=== PATIENT | female | born 1950 | race Caucasian/White ===

== ENCOUNTER 2021-10-16 08:10 | Inpatient (IN) ==
--- NOTE | 2021-10-06 17:30 | XRay Report ---
CLINICAL INFORMATION: Preop COMPARISON: None. TECHNIQUE: PA and Lateral views FINDINGS: Right subclavian Port-A-Cath tip in the SVC right atrial junction. The heart size, mediastinum and pulmonary vessels are unremarkable. The lungs are clear. There are no effusions. IMPRESSION: No acute cardiopulmonary disease. Interpreted and Authenticated by: Pastor Hong 10/06/21
--- NOTE | 2021-10-06 18:17 | EKG ---
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
[2021-10-06 19:03] LABS: Basophils # (Auto) 0.06 K/mcL (0.00-0.30); Basophils % (Auto) 0.7 % (0.0-2.0); Eosinophils # (Auto) 0.19 K/mcL (0.00-0.70); Eosinophils % (Auto) 2.3 % (0.0-7.0); Hematocrit 35.4 % (34.1-44.9); Hemoglobin 11.7 g/dL (11.2-15.7); Lymphocytes # (Auto) 1.92 K/mcL (1.50-4.80); Lymphocytes % (Auto) 23.6 % (15.5-49.0); Mean Cell Volume 91.2 fL (80.0-100.0); Mean Corpuscular HGB Conc 33.1 g/dL (31.0-36.0); Monocytes # (Auto) 0.54 K/mcL (0.10-0.90); Monocytes % (Auto) 6.6 % (1.0-12.0); Neutrophils % (Auto) 66.8 % (38.0-78.0); Platelet Count 334 K/mcL (140-440); RBC 3.88 M/mcL (3.59-5.38); Red Cell Distribution Width 13.3 % (11.5-14.5); WBC 8.2 K/mcL (4.5-11.0)
[2021-10-06 19:08] LABS: ALT/SGPT 21 U/L (<40); AST/SGOT 27 U/L (<32); Albumin 3.6 gm/dL (3.2-5.2); Alkaline Phosphatase 77 U/L (39-117); Bilirubin,Total 0.3 mg/dL (0.1-1.0); Blood Urea Nitrogen 16 mg/dL (8-23); Calcium 8.5 mg/dL (8.6-10.4); Carbon Dioxide 22 mmol/L (22-30); Chloride 102 mmol/L (96-108); Globulin 3.5 gm/dL (2.2-3.7); Glomerular Filtration Rate 88; Glucose 91 mg/dL (70-105)
[2021-10-06 19:13] LABS: INR 1.1 (0.9-1.1); Prothrombin Time 14.4 sec (11.9-14.5)
[~2021-10-16 08:10] MED LIST: CEFEPIME 2 GM VIAL IV SCH; metroNIDAZOLE 500 MG/100 ML BAG IV SCH
[2021-10-16] MEDS ORDERED: MAGNESIUM SULFATE 2 GM/50 ML BAG IV ONE (09:49)
[2021-10-16] MEDS ORDERED: MIDAZOLAM 2 MG/2 ML VIAL ONE (09:49)
[2021-10-16] MEDS ORDERED: ONDANSETRON 4 MG/2 ML VIAL ONE (09:49)
[2021-10-16] MEDS ORDERED: DEXAMETHASONE 10 MG/ML VIAL ONE (09:49)
[2021-10-16] MEDS ORDERED: PROPOFOL 200 MG/20 ML VIAL IV ONE (09:49)
[2021-10-16] MEDS ORDERED: ROCURONIUM 10 MG/ML ML IV ONE (09:49)
[2021-10-16] MEDS ORDERED: ePHEDrine 50 MG/5 ML SYRINGE (ANEST) IV ONE (09:49)
[2021-10-16] MEDS ORDERED: LIDOCAINE HCL/PF 100 MG/5 ML SYRINGE IV ONE (09:49)
[2021-10-16] MEDS ORDERED: SUGAMMADEX SODIUM 200 MG/2 ML VIAL IV ONE (09:49)
[2021-10-16] MEDS ORDERED: PHENYLephrine 1 MG/10 ML SYRINGE (ANEST) ONE (09:49)
[2021-10-16] MEDS ORDERED: KETAMINE 50 MG/ML Syringe (ANEST) IV ONE (09:49)
[2021-10-16] MEDS ORDERED: HYDROmorphone 1 MG/ML SYRINGE ONE (09:49)
[2021-10-16] MEDS ORDERED: GENTAMICIN SULFATE 800 MG/20 ML VIAL IR ONE (10:39)
[2021-10-16] MEDS ORDERED: VANCOMYCIN 1 GM VIAL TOPICAL SCH (10:45)
[2021-10-16] MEDS ORDERED: ONDANSETRON 4 MG/2 ML VIAL IV PRN ×2 (13:04→13:06)
[2021-10-16] MEDS ORDERED: MEPERIDINE 25 MG/ML VIAL IV PRN (13:06)
[2021-10-16] MEDS ORDERED: IPRATROPIUM/ALBUTEROL 3 ML AMPUL.NEB NEB PRN (13:06)
[2021-10-16] MEDS ORDERED: LACTATED RINGERS 250 ML IV PRN (13:06)
[2021-10-16] MEDS ORDERED: FLUMAZENIL 0.1 MG/ML ML IV PRN (13:06)
[2021-10-16] MEDS ORDERED: NALOXONE HCL 0.4 MG/ML VIAL IV PRN (13:06)
[2021-10-16] MEDS ORDERED: METOCLOPRAMIDE 10 MG/2 ML VIAL IV PRN (13:06)
[2021-10-16] MEDS: fentaNYL 100 MCG/2 ML VIAL IV PRN ×8 (13:17→13:47)
[2021-10-16] MEDS ORDERED: METHOCARBAMOL 1,000 MG/10 ML VIAL IV ONE (13:23)
[2021-10-16] MEDS: HYDROmorphone 0.5 MG/0.5 ML SYRINGE IV PRN ×2 (13:55→14:32)
[2021-10-16] MEDS: LACTATED RINGERS 1,000 ML IV SCH ×2 (14:15→23:26)
[2021-10-16] MEDS: ACETAMINOPHEN 1,000 MG/100 ML BAG IV SCH ×2 (14:16→19:56)
[2021-10-16] MEDS: HYDROmorphone 1 MG/ML SYRINGE IV PRN ×3 (16:23→23:26)
[2021-10-16] MEDS: 0.9 % SODIUM CHLORIDE 10 ML SYRINGE IV SCH ×2 (16:23→21:09)
[2021-10-16] MEDS: PIPERACILLIN SODIUM/TAZOBACTAM 3.375 GM in DEXTROSE 5% IN WATER 50 ML IV SCH ×2 (17:00→21:04)
[2021-10-16] MEDS: METOCLOPRAMIDE 10 MG/2 ML VIAL IV SCH ×2 (17:38→23:26)
[2021-10-16] MEDS: oxyCODONE HCL 5 MG TABLET PO PRN (17:58)
[2021-10-16] MEDS ORDERED: DOCUSATE SODIUM 100 MG CAPSULE PO SCH (21:00)
[2021-10-16] MEDS: DOCUSATE SODIUM 100 MG CAPSULE PO SCH (21:44)
[2021-10-16] MEDS: CELECOXIB 100 MG CAPSULE PO SCH (21:44)
[2021-10-16] MEDS: SENNOSIDES 1 TABLET PO SCH (21:44)
[2021-10-16] MEDS: METHOCARBAMOL 500 MG TABLET PO PRN (21:44)
[2021-10-16] MEDS: CARBIDOPA/LEVODOPA 25/100 TABLET PO SCH (21:44)
[2021-10-17] MEDS: PIPERACILLIN SODIUM/TAZOBACTAM 3.375 GM in DEXTROSE 5% IN WATER 50 ML IV SCH ×5 (00:58→23:26)
[2021-10-17] MEDS: 0.9 % SODIUM CHLORIDE 10 ML SYRINGE IV SCH ×6 (00:59→23:26)
[2021-10-17] MEDS: HYDROmorphone 1 MG/ML SYRINGE IV PRN ×5 (01:20→21:17)
[2021-10-17] MEDS: LACTATED RINGERS 1,000 ML IV SCH ×3 (01:21→22:05)
[2021-10-17] MEDS: ACETAMINOPHEN 1,000 MG/100 ML BAG IV SCH ×2 (01:26→08:09)
[2021-10-17] MEDS: METOCLOPRAMIDE 10 MG/2 ML VIAL IV SCH ×4 (05:54→23:26)
[2021-10-17 06:52] LABS: Basophils # (Auto) 0.06 K/mcL (0.00-0.30); Basophils % (Auto) 0.5 % (0.0-2.0); Eosinophils # (Auto) 0.06 K/mcL (0.00-0.70); Eosinophils % (Auto) 0.5 % (0.0-7.0); Hematocrit 34.4 % (34.1-44.9); Hemoglobin 10.9 g/dL (11.2-15.7); Lymphocytes # (Auto) 1.47 K/mcL (1.50-4.80); Lymphocytes % (Auto) 12.2 % (15.5-49.0); Mean Cell Volume 94.2 fL (80.0-100.0); Mean Corpuscular HGB Conc 31.7 g/dL (31.0-36.0); Mean Platelet Volume 8.9 fL (7.4-10.4); Monocytes # (Auto) 0.92 K/mcL (0.10-0.90); Monocytes % (Auto) 7.6 % (1.0-12.0); Neutrophils % (Auto) 79.2 % (38.0-78.0); Platelet Count 268 K/mcL (140-440); RBC 3.65 M/mcL (3.59-5.38)
[2021-10-17 07:22] LABS: ALT/SGPT < 5 U/L (<40); AST/SGOT 35 U/L (<32); Alkaline Phosphatase 73 U/L (39-117); Bilirubin,Direct < 0.2 mg/dL (0-0.3); Bilirubin,Total 0.4 mg/dL (0.1-1.0); Blood Urea Nitrogen 11 mg/dL (8-23); Calcium 7.7 mg/dL (8.6-10.4); Carbon Dioxide 23 mmol/L (22-30); Chloride 101 mmol/L (96-108); Glomerular Filtration Rate 65; Glucose 99 mg/dL (70-105); Lactate Dehydrogenase 208 U/L (135-225); Phosphorous 3.3 mg/dL (2.5-4.5); Triglycerides 75 mg/dL (<150)
[2021-10-17] MEDS: PANTOPRAZOLE 40 MG TABLET PO SCH (08:16)
[2021-10-17] MEDS: amLODIPine 10 MG TABLET PO SCH (08:25)
[2021-10-17] MEDS: DOCUSATE SODIUM 100 MG CAPSULE PO SCH ×2 (08:25→21:18)
[2021-10-17] MEDS: CITALOPRAM 20 MG TABLET PO SCH (08:25)
[2021-10-17] MEDS: CYANOCOBALAMIN (VITAMIN B-12) 500 MCG TABLET PO SCH (08:25)
[2021-10-17] MEDS: CELECOXIB 100 MG CAPSULE PO SCH ×2 (09:44→21:18)
--- NOTE | 2021-10-17 11:15 | General Surgery Progress Note ---
SUBJECTIVE Subjective Patient information: Note initiated : 10/17/21 at 11:09 am Service Date, if different from initiated Date: [] Patient: Angelia Gilliam 71 y/o F admitted on 10/16/21 for Laparoscopic Parastomal Hernia Repair. Chief Complaint: [] Principal diagnosis: Parastomal hernia Interval history: Patient is doing well. Her pain is well controlled. She denies nausea. She has not had movement through her stoma so far. Her incision looks good with small amount of drainage. Constitutional Vitals: Vital Signs Temp Pulse Resp BP Pulse Ox 97.0 F 73 18 130/76 91 10/17/21 08:17 10/17/21 08:17 10/17/21 08:20 10/17/21 08:17 10/17/21 08:20 Period Temp Pulse Resp BP Sys/Mcnamara Pulse Ox Last 24 Hr 96.9 F-98.1 F 62-91 12-88 106-160/68-110 85-100 Intake and Output 10/16/21 10/17/21 10/17/21 21:59 05:59 13:59 Intake Total 300 1250 230 Output Total 115 240 Balance 185 1010 230 Weight 168 lb 3 oz Intake & Output: Intake & Output 10/16/21 10/17/21 10/17/21 21:59 05:59 13:59 Intake Total 300 1250 230 Output Total 115 240 Balance 185 1010 230 Weight 168 lb 3 oz Intake: IV 300 1150 150 Lactated Ringers 1,000 ml @ 100 1000 mls/hr IV .Q10H KANDI Rx#: [id number] Zosyn 3.375 gm In Dextrose 5% 100 50 50 in Water 50 ml @ 100 mls/hr IV Q6H KANDI Rx#:[id number] Oral 100 80 Output: Drainage 115 40 Left Abdomen 115 40 Void Amount 200 Eye Eye exam: Present EOMI Pupils: Present normal accommodation and PERRL ENT ENT exam: Present mucous membranes moist and normal exam Neck Neck exam: Present full ROM and normal inspection; Absent tenderness Respiratory Respiratory exam: Present normal respiratory exam and CTAB Cardiovascular Cardiovascular exam: Present normal rate and rhythm, RRR, +S1 and +S2; Absent JVD GI/Abdominal GI/Abdominal exam: Present normal bowel sounds and distended (Mild distention) Extremities Exam Extremities exam: Present full ROM and normal inspection; Absent pedal edema Neurological Exam Neurological exam: Present alert, normal gait and oriented X3; Absent motor sensory deficit Psychiatric Psychiatric exam: Present normal affect and normal mood A/P Assessment and plan (1) Incisional hernia of anterior abdominal wall without obstruction or gangrene: Status: Acute (2) Parastomal hernia without obstruction or gangrene: Status: Acute (3) Colostomy status: Status: Acute Plan Patient is doing well without complaints. Time Spent With Patient Time: Total time spent is greater than 50% in coordination of care (as documented) at patient's floor/unit and/or counseling patient:
[2021-10-17] MEDS: SENNOSIDES 1 TABLET PO SCH (21:18)
[2021-10-17] MEDS: CARBIDOPA/LEVODOPA 25/100 TABLET PO SCH (21:18)
[2021-10-17] MEDS: METHOCARBAMOL 500 MG TABLET PO PRN (21:18)
[2021-10-18] MEDS: HYDROmorphone 1 MG/ML SYRINGE IV PRN ×6 (01:18→19:19)
[2021-10-18] MEDS: LACTATED RINGERS 1,000 ML IV SCH ×4 (05:23→19:19)
[2021-10-18] MEDS: PIPERACILLIN SODIUM/TAZOBACTAM 3.375 GM in DEXTROSE 5% IN WATER 50 ML IV SCH ×4 (06:00→23:31)
[2021-10-18] MEDS: METOCLOPRAMIDE 10 MG/2 ML VIAL IV SCH ×4 (06:01→23:31)
[2021-10-18] MEDS: 0.9 % SODIUM CHLORIDE 10 ML SYRINGE IV SCH ×3 (06:01→20:31)
[2021-10-18] MEDS: oxyCODONE HCL 5 MG TABLET PO PRN ×2 (07:37→23:25)
[2021-10-18] MEDS: PANTOPRAZOLE 40 MG TABLET PO SCH (07:37)
[2021-10-18] MEDS: METHOCARBAMOL 500 MG TABLET PO PRN (07:40)
[2021-10-18] MEDS: CELECOXIB 100 MG CAPSULE PO SCH ×2 (08:57→20:31)
[2021-10-18] MEDS: DOCUSATE SODIUM 100 MG CAPSULE PO SCH ×2 (09:00→20:30)
[2021-10-18] MEDS: amLODIPine 10 MG TABLET PO SCH (09:00)
[2021-10-18] MEDS: CITALOPRAM 20 MG TABLET PO SCH (09:00)
[2021-10-18] MEDS: CYANOCOBALAMIN (VITAMIN B-12) 500 MCG TABLET PO SCH (09:00)
--- NOTE | 2021-10-18 11:19 | General Surgery Progress Note ---
SUBJECTIVE Subjective Patient information: Note initiated : 10/18/21 at 11:10 am Service Date, if different from initiated Date: [] Patient: Angelia Gilliam 71 y/o F admitted on 10/16/21 for Laparoscopic Parastomal Hernia Repair. Chief Complaint: [] Principal diagnosis: Parastomal hernia Interval history: Patient is stable and improved. She still not had any flatus through her stoma. She however does not have a distended abdomen. No complaint of nausea and her abdominal pain is well controlled. She does complain of headache which is new in onset. Constitutional Vitals: Vital Signs Temp Pulse Resp BP Pulse Ox 98.3 F 101 H 18 161/92 92 10/18/21 08:45 10/18/21 08:45 10/18/21 08:45 10/18/21 08:45 10/18/21 08:45 Period Temp Pulse Resp BP Sys/Mcnamara Pulse Ox Last 24 Hr 97.1 F-98.9 F 67-101 16-18 122-173/52-92 89-95 Intake and Output 10/17/21 10/18/21 10/18/21 21:59 05:59 13:59 Intake Total 7984 029 4227 Output Total 7724 309 2144 Balance -43 -705 -325 Weight 164 lb 4.8 oz Intake & Output: Intake & Output 10/17/21 10/18/21 10/18/21 21:59 05:59 13:59 Intake Total 0503 975 7788 Output Total 2303 082 3139 Balance -43 -705 -325 Weight 164 lb 4.8 oz Intake: IV 1050 50 1050 Lactated Ringers 1,000 ml @ 100 1000 1000 mls/hr IV .Q10H KANDI Rx#: [id number] Zosyn 3.375 gm In Dextrose 5% 50 50 50 in Water 50 ml @ 100 mls/hr IV Q6H KANDI Rx#:[id number] Oral 15 150 100 Output: Drainage 8 5 Left Abdomen 8 5 Void Amount 4140 840 5812 Other: Urine Appearance Clear Clear Urine Color Bright Yellow Bright Yellow Urine Odor Normal Normal Eye Eye exam: Present EOMI Pupils: Present PERRL ENT ENT exam: Present mucous membranes moist and normal oropharynx Neck Neck exam: Present full ROM and normal inspection; Absent lymphadenopathy Respiratory Respiratory exam: Present normal respiratory exam and CTAB Cardiovascular Cardiovascular exam: Present normal rate and rhythm, RRR, +S1 and +S2; Absent JVD GI/Abdominal GI/Abdominal exam: Present diminished bowel sounds (Hypoactive bowel sounds), distended (Mild distention) and tenderness (Tenderness around operative site; stoma is pink and nonswollen) Extremities Exam Extremities exam: Present normal capillary refill and neurovascular intact Neurological Exam Neurological exam: Present CN II-XII intact and oriented X3; Absent motor sensory deficit Psychiatric Psychiatric exam: Present normal affect and normal mood Skin Skin exam: Present intact and normal color A/P Assessment and plan (1) Incisional hernia of anterior abdominal wall without obstruction or gangrene: Status: Acute (2) Parastomal hernia without obstruction or gangrene: Status: Acute (3) Colostomy status: Status: Acute Plan May have apple juice 2 view abdominal x-ray CBC and IP Fioricet for headache Time Spent With Patient Time: Total time spent is greater than 50% in coordination of care (as documented) at patient's floor/unit and/or counseling patient:
[2021-10-18] MEDS: BUTALB/ACETAMINOPHEN/CAFFEINE 1 TABLET PO PRN ×3 (11:52→23:26)
--- NOTE | 2021-10-18 12:05 | XRay Report ---
INDICATION: FOR F/U OF ILEUS: Please perform today TECHNIQUE: Supine and upright abdomen. COMPARISON: Previous CT scan dated 07/27/2021 FINDINGS:There are skin josue and a vertical midline abdominal and pelvic incision. There is a surgical drain in the left lower quadrant. Surgical clips in the right upper abdominal quadrant. There is gas within the colon. There is no pneumatosis. No evidence for colonic obstruction. There is small bowel gas without significant dilatation. No air-fluid levels. There is no pneumoperitoneum. No biliary or portal venous gas. IMPRESSION: Unremarkable postoperative bowel gas pattern Interpreted and Authenticated by: Pastor Starkey 10/18/21
[2021-10-18] MEDS: CARBIDOPA/LEVODOPA 25/100 TABLET PO SCH (20:31)
[2021-10-18] MEDS: SENNOSIDES 1 TABLET PO SCH (20:31)
[2021-10-19] MEDS: HYDROmorphone 1 MG/ML SYRINGE IV PRN ×2 (03:00→05:31)
[2021-10-19] MEDS: BUTALB/ACETAMINOPHEN/CAFFEINE 1 TABLET PO PRN ×2 (04:19→11:25)
[2021-10-19] MEDS: LACTATED RINGERS 1,000 ML IV SCH (04:53)
[2021-10-19] MEDS: 0.9 % SODIUM CHLORIDE 10 ML SYRINGE IV SCH ×5 (05:49→23:58)
[2021-10-19] MEDS: PIPERACILLIN SODIUM/TAZOBACTAM 3.375 GM in DEXTROSE 5% IN WATER 50 ML IV SCH ×4 (05:50→23:32)
[2021-10-19] MEDS: METOCLOPRAMIDE 10 MG/2 ML VIAL IV SCH ×4 (06:07→23:58)
[2021-10-19 06:21] LABS: Basophils # (Auto) 0.05 K/mcL (0.00-0.30); Basophils % (Auto) 0.6 % (0.0-2.0); Eosinophils # (Auto) 0.73 K/mcL (0.00-0.70); Eosinophils % (Auto) 8.4 % (0.0-7.0); Hematocrit 35.7 % (34.1-44.9); Hemoglobin 11.4 g/dL (11.2-15.7); Lymphocytes % (Auto) 12.6 % (15.5-49.0); Mean Cell Volume 94.7 fL (80.0-100.0); Mean Corpuscular HGB Conc 31.9 g/dL (31.0-36.0); Monocytes # (Auto) 0.68 K/mcL (0.10-0.90); Monocytes % (Auto) 7.8 % (1.0-12.0); Neutrophils % (Auto) 70.6 % (38.0-78.0); Platelet Count 272 K/mcL (140-440); RBC 3.77 M/mcL (3.59-5.38); WBC 8.7 K/mcL (4.5-11.0)
[2021-10-19 06:55] LABS: ALT/SGPT < 5 U/L (<40); AST/SGOT 22 U/L (<32); Albumin 2.9 gm/dL (3.2-5.2); Albumin/Globulin Ratio 0.8 (1.0-2.3); Alkaline Phosphatase 95 U/L (39-117); Bilirubin,Direct < 0.2 mg/dL (0-0.3); Bilirubin,Total 0.4 mg/dL (0.1-1.0); Blood Urea Nitrogen 7 mg/dL (8-23); Calcium 8.4 mg/dL (8.6-10.4); Carbon Dioxide 31 mmol/L (22-30); Chloride 100 mmol/L (96-108); Globulin 3.6 gm/dL (2.2-3.7); Glomerular Filtration Rate 88; Glucose 99 mg/dL (70-105); Lactate Dehydrogenase 173 U/L (135-225); Phosphorous 2.4 mg/dL (2.5-4.5); Triglycerides 83 mg/dL (<150); Uric Acid 3.1 mg/dL (2.5-8.0)
[2021-10-19] MEDS: PANTOPRAZOLE 40 MG TABLET PO SCH (07:26)
[2021-10-19] MEDS: amLODIPine 10 MG TABLET PO SCH (08:31)
[2021-10-19] MEDS: DOCUSATE SODIUM 100 MG CAPSULE PO SCH ×2 (08:31→20:14)
[2021-10-19] MEDS: CITALOPRAM 20 MG TABLET PO SCH (08:32)
[2021-10-19] MEDS: CYANOCOBALAMIN (VITAMIN B-12) 500 MCG TABLET PO SCH (08:32)
[2021-10-19] MEDS: CELECOXIB 100 MG CAPSULE PO SCH (08:32)
[2021-10-19] MEDS: oxyCODONE HCL 5 MG TABLET PO PRN ×2 (14:27→20:22)
[2021-10-19] MEDS: METHOCARBAMOL 500 MG TABLET PO PRN ×2 (14:27→20:14)
--- NOTE | 2021-10-19 15:38 | General Surgery Progress Note ---
SUBJECTIVE Subjective Patient information: Note initiated : 10/19/21 at 3:32 pm Service Date, if different from initiated Date: [] Patient: Angelia Gilliam 71 y/o F admitted on 10/16/21 for Laparoscopic Parastomal Hernia Repair. Chief Complaint: [] Principal diagnosis: Parastomal hernia Interval history: Patient is doing well except for severe headache. She complains of muscle contraction headache that starts in her posterior neck and spreads across the top of her scalp to the front. She describes it as a constant tightness and ache. She states that she generally does not have headaches. She has had multiple bowel movements and her stoma is functioning adequately. There is minimal output from her drain. Constitutional Vitals: Vital Signs Temp Pulse Resp BP Pulse Ox 98.5 F 96 H 22 169/89 99 10/19/21 12:00 10/19/21 12:00 10/19/21 12:00 10/19/21 07:46 10/19/21 12:00 Period Temp Pulse Resp BP Sys/Mcnamara Pulse Ox Last 24 Hr 97.2 F-98.5 F 75-96 16-22 117-169/64-89 91-99 Intake and Output 10/19/21 10/19/21 10/19/21 05:59 13:59 21:59 Intake Total 1427 50 50 Output Total 780 500 Balance 647 -450 50 Intake & Output: Intake & Output 10/19/21 10/19/21 10/19/21 05:59 13:59 21:59 Intake Total 1427 50 50 Output Total 780 500 Balance 647 -450 50 Intake: IV 1007 50 50 Lactated Ringers 1,000 ml @ 100 957 mls/hr IV .Q10H KANDI Rx#: [id number] Zosyn 3.375 gm In Dextrose 5% 50 50 50 in Water 50 ml @ 100 mls/hr IV Q6H KANDI Rx#:[id number] Oral 420 Output: Drainage 5 Left Abdomen 5 Void Amount 775 450 Stool 50 Other: Urine Appearance Clear Urine Color Pale Urine Odor Normal Stool Size Small Stool Color Brown Yellow Green Head Head exam: Present atraumatic, normal inspection and normocephalic Additional comments: Mild tenderness of the posterior cervical muscles but without spasm; no scalp tenderness noted Eye Eye exam: Present EOMI and PERRL ENT ENT exam: Present mucous membranes moist and normal oropharynx Neck Neck exam: Present full ROM and normal inspection; Absent lymphadenopathy Respiratory Respiratory exam: Present CTAB Cardiovascular Cardiovascular exam: Present normal rate and rhythm, RRR, +S1 and +S2; Absent gallop or JVD GI/Abdominal GI/Abdominal exam: Present normal bowel sounds and tenderness (Mild tenderness in parastomal area); Absent distended or mass Extremities Exam Extremities exam: Present full ROM and normal inspection; Absent neurovascular intact Back Exam Back exam: Present normal inspection Neurological Exam Neurological exam: Present alert, CN II-XII intact and oriented X3; Absent motor sensory deficit Psychiatric Psychiatric exam: Present normal affect and normal mood Skin Skin exam: Present normal color A/P Assessment and plan (1) Muscle contraction headache syndrome: Status: Acute (2) Colostomy status: Status: Acute (3) Incisional hernia of anterior abdominal wall without obstruction or gangrene: Status: Acute (4) Parastomal hernia without obstruction or gangrene: Status: Acute Plan Toradol 30 mg IV every 6 hours x4 doses Delay discharge Time Spent With Patient Time: Total time spent is greater than 50% in coordination of care (as documented) at patient's floor/unit and/or counseling patient:
[2021-10-19] MEDS: KETOROLAC 30 MG/ML VIAL IV SCH ×2 (17:20→23:58)
[2021-10-19] MEDS: CARBIDOPA/LEVODOPA 25/100 TABLET PO SCH (20:14)
[2021-10-19] MEDS: SENNOSIDES 1 TABLET PO SCH (20:14)
[2021-10-20] MEDS: HYDROmorphone 1 MG/ML SYRINGE IV PRN (02:01)
[2021-10-20] MEDS: 0.9 % SODIUM CHLORIDE 10 ML SYRINGE IV SCH ×2 (02:01→05:11)
[2021-10-20] MEDS: KETOROLAC 30 MG/ML VIAL IV SCH ×2 (05:10→12:17)
[2021-10-20] MEDS: PIPERACILLIN SODIUM/TAZOBACTAM 3.375 GM in DEXTROSE 5% IN WATER 50 ML IV SCH ×2 (05:11→12:17)
[2021-10-20] MEDS: METOCLOPRAMIDE 10 MG/2 ML VIAL IV SCH ×2 (05:11→12:16)
[2021-10-20] MEDS: METHOCARBAMOL 500 MG TABLET PO PRN (05:17)
[2021-10-20] MEDS: PANTOPRAZOLE 40 MG TABLET PO SCH (07:30)
[2021-10-20] MEDS: CYANOCOBALAMIN (VITAMIN B-12) 500 MCG TABLET PO SCH (08:39)
[2021-10-20] MEDS: CITALOPRAM 20 MG TABLET PO SCH (08:40)
[2021-10-20] MEDS: oxyCODONE HCL 5 MG TABLET PO PRN (08:40)
[2021-10-20] MEDS: DOCUSATE SODIUM 100 MG CAPSULE PO SCH (08:40)
[2021-10-20] MEDS: amLODIPine 10 MG TABLET PO SCH (08:40)
--- NOTE | 2021-10-20 14:30 | Discharge Summary ---
Discharge Provider Provider IMPORTANT FOLLOW-UP INFORMATION FOR PCP: Patient information: Note initiated : 10/20/21 at 2:23 pm Service Date, if different from initiated Date: [] Patient: Angelia Gilliam 71 y/o F admitted on 10/16/21 for Laparoscopic Parastomal Hernia Repair. Chief Complaint: [] Date of admission: 10/16/21 14:49 Discharge date: 10/20/21 Primary care physician: Jose Bernardo MD Admitting clinician: Markus Rodriguez Attending physician on admission: Markus Rodriguez Attending physician on discharge: Markus Rodriguez Discharging clinician: Markus Rodriguez COURSE Hospital Course Hospital course: 71-year-old female who is status post incisional hernia and parastomal hernia repair on November 04. The patient had mild ileus but was having regular bowel movements by the third postoperative day. She had severe headache which was muscular contraction type headache that started in the posterior cervical muscles and spread across her scalp. She was treated with Toradol IV and her symptoms resolved. At this time she has no complaints except for hunger. Her incision is looking good and her stoma is functioning appropriately. Patient is stable for discharge Discharge diagnosis: Parastomal hernia Secondary discharge diagnosis: Incisional hernia Muscle contraction headache syndrome Hypertension Osteoarthritis What is that Reason for admission: Postoperative care Procedures: Incisional hernia repair and parastomal hernia repair with mesh Pertinent studies/significant findings: None Complications: None Time Spent with Patient Time attestation: Total time spent providing and/or coordinating discharge services: Time spent: Less than 30 minutes Physical Examination Vital Signs Vital signs: Temp Pulse Resp BP Pulse Ox 97.6 F 79 20 145/80 98 10/20/21 12:00 10/20/21 12:00 10/20/21 12:00 10/20/21 12:10/20/21 12:00 General physical appearance General physical exam: well developed, well nourished, no distress, no pain and obese Eyes Eye exam: PERRL and normal ocular movement ENT ENT exam: normal mucosa, no hearing loss and no congestion Head Head exam IM: Present atraumatic, normal inspection and normocephalic Neck Neck exam: no masses, no bruits, trachea midline, no lymphadenopathy and no venous distension Cardiovascular Cardiovascular exam IM: Present normal rate and rhythm, RRR, +S1 and +S2; Absent JVD Respiratory Respiratory exam: normal expansion, normal respiratory effort and clear to auscultation Abdomen Abdomen: Present soft, bowel sounds (Good active bowel sounds) and wound (Incision is healing nicely); Absent non tender Integumentary Integumentary: Present no rash, no growths and no abnormal pigmentation Neurologic Neurologic: Present normal coordination and normal sensation Musculoskeletal Musculoskeletal: Present normal gait and normal posture Psychiatric Psychiatric: Present oriented to time, oriented to person, oriented to place, speech is normal and memory intact Discharge Plan Patient/Caregiver Discharge Instructions Activity: increase activity as tolerated Diet: Regular Diet Prescriptions: New oxycodone-acetaminophen [Endocet] 10-325 mg Tablet 1 tab PO Q4H PRN (Reason: Pain) Qty: 60 0RF Continued celecoxib [Celebrex] 100 mg capsule 100 mg PO BID Qty: 180 1RF pantoprazole 40 mg tablet,delayed release (DR/EC) 40 mg PO ACB Qty: 90 1RF amlodipine 10 mg tablet 10 mg PO QDAY Qty: 90 1RF citalopram 40 mg tablet 40 mg PO QDAY Qty: 30 2RF methocarbamol 500 mg tablet 500 mg PO BIDP PRN (Reason: pain) 0RF carbidopa-levodopa [Sinemet] 25-100 mg tablet 2 tab PO HS 0RF cyanocobalamin (vitamin B-12) 1,000 mcg Tablet 1,000 mcg PO QDAY 0RF ibuprofen 400 mg Tablet 400 mg PO Q6H 0RF docusate sodium 100 mg Capsule 100 mg PO BID 0RF Discontinued oxycodone 5 mg Tablet 5 mg PO TID PRN (Reason: Pain) 0RF Follow Up Plan Follow up with: Markus Rodriguez MD [Physician] - 11/02/21 10:00 am Patient Disposition: Home, Self-Care Prognosis: Good Rehab Potential: Good Overall status at discharge: patient is progressing back to baseline Discharge Orders: Discharge Order (Routine); Ordered 10/20/21 Ordered By: Markus Rodriguez Pending Pending Pending: Resuscitation Status Resuscitate (Full Code) Diet Clear Liquid Diet Start TueOct 19 928 Acetaminophen/Butalbital/Caffeine (Butalb/Acetaminophen/Caffeine 1 Tablet) 2 tab PO Q4HP PRN PRN Reason: Headache Last Admin: 10/19/21 11:25 Dose: 2 tab Documented by: Admin: 10/19/21 04:19 Dose: 2 tab Documented by: Admin: 10/18/21 23:26 Dose: 2 tab Documented by: Admin: 10/18/21 16:40 Dose: 2 tab Documented by: Admin: 10/18/21 11:52 Dose: 2 tab Documented by: MATTHIAS Amlodipine Besylate (Amlodipine 10 Mg Tablet) 10 mg PO QDAY [facility] Admin: 10/20/21 08:40 Dose: 10 mg Documented by: Admin: 10/19/21 08:31 Dose: 10 mg Documented by: Admin: 10/18/21 09:00 Dose: 10 mg Documented by: Admin: 10/17/21 08:25 Dose: 10 mg Documented by: MATTHIAS Carbidopa/Levodopa (Carbidopa/Levodopa 25/100 Tablet) 2 tab PO HS [facility] Admin: 10/19/21 20:14 Dose: 2 tab Documented by: Admin: 10/18/21 20:31 Dose: 2 tab Documented by: Admin: 10/17/21 21:18 Dose: 2 tab Documented by: Admin: 10/16/21 21:44 Dose: 2 tab Documented by: ROSLYN Citalopram Hydrobromide (Citalopram 20 Mg Tablet) 40 mg PO DAILY [facility] Admin: 10/20/21 08:40 Dose: 40 mg Documented by: Admin: 10/19/21 08:32 Dose: 40 mg Documented by: Admin: 10/18/21 09:00 Dose: 40 mg Documented by: Admin: 10/17/21 08:25 Dose: 40 mg Documented by: MATTHIAS Cyanocobalamin (Cyanocobalamin (Vitamin B-12) 500 Mcg Tablet) 1,000 mcg PO DAILY [facility] Admin: 10/20/21 08:39 Dose: 1,000 mcg Documented by: Admin: 10/19/21 08:32 Dose: 1,000 mcg Documented by: Admin: 10/18/21 09:00 Dose: 1,000 mcg Documented by: Admin: 10/17/21 08:25 Dose: 1,000 mcg Documented by: MATTHIAS Docusate Sodium (Docusate Sodium 100 Mg Capsule) 100 mg PO BID [facility] Admin: 10/20/21 08:40 Dose: 100 mg Documented by: Admin: 10/19/21 20:14 Dose: 100 mg Documented by: Admin: 10/19/21 08:31 Dose: 100 mg Documented by: Admin: 10/18/21 20:30 Dose: 100 mg Documented by: Admin: 10/18/21 09:00 Dose: 100 mg Documented by: Admin: 10/17/21 21:18 Dose: 100 mg Documented by: Admin: 10/17/21 08:25 Dose: 100 mg Documented by: Admin: 10/16/21 21:44 Dose: 100 mg Documented by: ROSLYN Hydromorphone HCl (Hydromorphone 1 Mg/Ml Syringe) 1 mg IV Q2HP PRN; Protocol PRN Reason: Per Pain Protocol Last Admin: 10/20/21 02:01 Dose: 1 mg Documented by: Admin: 10/19/21 05:31 Dose: 1 mg Documented by: Admin: 10/19/21 03:00 Dose: 1 mg Documented by: Admin: 10/18/21 19:19 Dose: 1 mg Documented by: Admin: 10/18/21 16:42 Dose: 1 mg Documented by: Admin: 10/18/21 14:11 Dose: 1 mg Documented by: Admin: 10/18/21 10:31 Dose: 1 mg Documented by: Admin: 10/18/21 04:44 Dose: 1 mg Documented by: Admin: 10/18/21 01:18 Dose: 1 mg Documented by: Admin: 10/17/21 21:17 Dose: 1 mg Documented by: Admin: 10/17/21 15:21 Dose: 1 mg Documented by: Admin: 10/17/21 10:34 Dose: 1 mg Documented by: Admin: 10/17/21 06:01 Dose: 1 mg Documented by: Admin: 10/17/21 01:20 Dose: 1 mg Documented by: Admin: 10/16/21 23:26 Dose: 1 mg Documented by: Admin: 10/16/21 19:41 Dose: 1 mg Documented by: Admin: 10/16/21 16:23 Dose: 1 mg Documented by: WILIAM Piperacillin Sod/Tazobactam (Sod 3.375 gm/ Dextrose) 50 mls @ 100 mls/hr IV Q6H KANDI; Protocol Last Admin: 10/20/21 12:17 Dose: 100 mls/hr Documented by: Infusion: 10/20/21 05:56 Dose: 0 mls/hr Documented by: Admin: 10/20/21 05:11 Dose: 100 mls/hr Documented by: Infusion: 10/20/21 00:05 Dose: 0 mls/hr Documented by: Admin: 10/19/21 23:32 Dose: 100 mls/hr Documented by: Infusion: 10/19/21 18:05 Dose: 0 mls/hr Documented by: Admin: 10/19/21 17:20 Dose: 100 mls/hr Documented by: Infusion: 10/19/21 15:26 Dose: 0 mls/hr Documented by: Admin: 10/19/21 14:26 Dose: 100 mls/hr Documented by: Infusion: 10/19/21 06:33 Dose: 0 mls/hr Documented by: Admin: 10/19/21 05:50 Dose: 100 mls/hr Documented by: Infusion: 10/19/21 00:23 Dose: 0 mls/hr Documented by: Admin: 10/18/21 23:31 Dose: 100 mls/hr Documented by: Infusion: 10/18/21 19:06 Dose: 0 mls/hr Documented by: Admin: 10/18/21 17:54 Dose: 100 mls/hr Documented by: Infusion: 10/18/21 12:45 Dose: 0 mls/hr Documented by: Admin: 10/18/21 12:14 Dose: 100 mls/hr Documented by: Infusion: 10/18/21 06:30 Dose: 0 mls/hr Documented by: Admin: 10/18/21 06:00 Dose: 100 mls/hr Documented by: Infusion: 10/18/21 00:05 Dose: 0 mls/hr Documented by: Admin: 10/17/21 23:26 Dose: 100 mls/hr Documented by: Infusion: 10/17/21 18:40 Dose: 0 mls/hr Documented by: Admin: 10/17/21 17:56 Dose: 100 mls/hr Documented by: Infusion: 10/17/21 13:12 Dose: 0 mls/hr Documented by: Admin: 10/17/21 12:38 Dose: 100 mls/hr Documented by: Infusion: 10/17/21 06:25 Dose: 0 mls/hr Documented by: Admin: 10/17/21 05:55 Dose: 100 mls/hr Documented by: Infusion: 10/17/21 01:28 Dose: 0 mls/hr Documented by: Admin: 10/17/21 00:58 Dose: 100 mls/hr Documented by: Infusion: 10/16/21 21:38 Dose: 0 mls/hr Documented by: Admin: 10/16/21 21:04 Dose: 100 mls/hr Documented by: Infusion: 10/16/21 17:30 Dose: 0 mls/hr Documented by: Admin: 10/16/21 17:00 Dose: 100 mls/hr Documented by: MATTHIAS Ketorolac Tromethamine (Ketorolac 30 Mg/Ml Vial) 30 mg IV Q6 KANDI Stop: 10/21/21 15:30 Last Admin: 10/20/21 12:17 Dose: 30 mg Documented by: Admin: 10/20/21 05:10 Dose: 30 mg Documented by: Admin: 10/19/21 23:58 Dose: 30 mg Documented by: Admin: 10/19/21 17:20 Dose: 30 mg Documented by: MARTÍNEZ Methocarbamol (Methocarbamol 500 Mg Tablet) 500 mg PO Q6HP PRN PRN Reason: pain Last Admin: 10/20/21 05:17 Dose: 500 mg Documented by: Admin: 10/19/21 20:14 Dose: 500 mg Documented by: ROSLYN Metoclopramide HCl (Metoclopramide 10 Mg/2 Ml Vial) 10 mg IV Q6 KANDI Last Admin: 10/20/21 12:16 Dose: 10 mg Documented by: Admin: 10/20/21 05:11 Dose: 10 mg Documented by: Admin: 10/19/21 23:58 Dose: 10 mg Documented by: Admin: 10/19/21 17:21 Dose: 10 mg Documented by: Admin: 10/19/21 11:25 Dose: 10 mg Documented by: Admin: 10/19/21 06:07 Dose: 10 mg Documented by: Admin: 10/18/21 23:31 Dose: 10 mg Documented by: Admin: 10/18/21 17:51 Dose: 10 mg Documented by: Admin: 10/18/21 11:35 Dose: 10 mg Documented by: Admin: 10/18/21 06:01 Dose: 10 mg Documented by: Admin: 10/17/21 23:26 Dose: 10 mg Documented by: Admin: 10/17/21 18:05 Dose: 10 mg Documented by: Admin: 10/17/21 11:56 Dose: 10 mg Documented by: Admin: 10/17/21 05:54 Dose: 10 mg Documented by: Admin: 10/16/21 23:26 Dose: 10 mg Documented by: Admin: 10/16/21 17:38 Dose: 10 mg Documented by: MATTHIAS Ondansetron HCl (Ondansetron 4 Mg/2 Ml Vial) 4 mg IV Q6HP PRN PRN Reason: Nausea And Vomiting Last Admin: 10/16/21 15:58 Dose: 4 mg Documented by: WILIAM Oxycodone HCl (Oxycodone Hcl 5 Mg Tablet) 5 mg PO TID PRN; Protocol PRN Reason: Pain Last Admin: 10/20/21 08:40 Dose: 5 mg Documented by: Admin: 10/19/21 20:22 Dose: 5 mg Documented by: Admin: 10/19/21 14:27 Dose: 5 mg Documented by: Admin: 10/18/21 23:25 Dose: 5 mg Documented by: Admin: 10/18/21 07:37 Dose: 5 mg Documented by: Admin: 10/16/21 17:58 Dose: 5 mg Documented by: MATTHIAS Pantoprazole Sodium (Pantoprazole 40 Mg Tablet) 40 mg PO ACB [facility] Admin: 10/20/21 07:30 Dose: 40 mg Documented by: Admin: 10/19/21 07:26 Dose: 40 mg Documented by: Admin: 10/18/21 07:37 Dose: 40 mg Documented by: Admin: 10/17/21 08:16 Dose: 40 mg Documented by: MATTHIAS Senna (Sennosides 1 Tablet) 2 tab PO HS [facility] Admin: 10/19/21 20:14 Dose: 2 tab Documented by: Admin: 10/18/21 20:31 Dose: 2 tab Documented by: Admin: 10/17/21 21:18 Dose: 2 tab Documented by: Admin: 10/16/21 21:44 Dose: 2 tab Documented by: ROSLYN Sodium Chloride (0.9 % Sodium Chloride 10 Ml Syringe) 10 ml IV Q8 [facility] Admin: 10/20/21 05:11 Dose: 10 ml Documented by: Admin: 10/20/21 02:01 Dose: 10 ml Documented by: Admin: 10/19/21 23:58 Dose: 10 ml Documented by: Admin: 10/19/21 23:32 Dose: 10 ml Documented by: Admin: 10/19/21 20:14 Dose: 10 ml Documented by: Admin: 10/19/21 14:34 Dose: 10 ml Documented by: Admin: 10/19/21 05:49 Dose: 10 ml Documented by: Admin: 10/18/21 20:31 Dose: 10 ml Documented by: Admin: 10/18/21 12:55 Dose: 10 ml Documented by: Admin: 10/18/21 06:01 Dose: 10 ml Documented by: Admin: 10/17/21 23:26 Dose: 10 ml Documented by: Admin: 10/17/21 21:18 Dose: 10 ml Documented by: Admin: 10/17/21 13:20 Dose: 10 ml Documented by: Admin: 10/17/21 05:55 Dose: 10 ml Documented by: Admin: 10/17/21 01:26 Dose: 10 ml Documented by: Admin: 10/17/21 00:59 Dose: 10 ml Documented by: Admin: 10/16/21 21:09 Dose: 10 ml Documented by: Admin: 10/16/21 16:23 Dose: Not Given Documented by: WILIAM Shift Summary 10/20/21 03:26 Shift Summary by Suyapa Kerns Primary Diagnosis: Parastomal & incisional hernia repair Registration Status: In-patient Day of Hospitalization: Admitted 10/16 Date of Surgery (if applicable): 10/16 Pertinent Medical Dx/Issue(s): History Colon Ca with Colostomy placement. Interventions (wounds, diuresis, etc): Pain meds, IS use, Reglan, ABO's Vital Signs with Trends: VSS on RA Neuro/Mental Status: A&Ox4 Meds (abo, pain, BP, etc): Reglan, Zosyn, Protonix scheduled; Robaxin/oxycodone/Fioricet available prn Lines/Tube: right forearm IV SL O2, liter flow/saturations: VSS on RA Lab/Rad results: Date of last BM: 10/19 Elimination (remove Enrique within 24h if appropriate): Up to bathroom. Colostomy producing stool Activity: up ad jay in room Expected date of discharge: TBD Discharge Plan (needs, disposition, etc): TBD Pt has struggled most of the day with a H/A that resolved during the night after order for Toradol was started. Patient slept well during the night. Initialized on 10/20/21 03:26 - END OF NOTE
--- NOTE | 2021-10-23 13:57 | Brief Operative Note ---
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
--- NOTE | 2021-10-27 10:10 | Operative Note ---
DATE OF OPERATION: 10/16/2021 PREOPERATIVE DIAGNOSIS: Incisional hernia of anterior abdominal wall and parastomal hernia. POSTOPERATIVE DIAGNOSIS: Incisional hernia of anterior abdominal wall and parastomal hernia. PROCEDURE: Mesh graft repair of parastomal hernia and incisional hernia repair of anterior abdominal wall. SURGEON: Markus Rodriguez MD FINDINGS: Left lower quadrant parastomal fascial defect with herniation of the multiple loops of bowel on the anterior midline herniation of the incisional hernia. PROCEDURE IN DETAIL: Under general anesthesia, patient's abdomen was prepped and draped in a sterile field. The stoma was closed preprocedure. The abdominal wall was covered with Vi-Drape. Timeout procedure was carried out as per protocol. A midline incision was excised and then the peritoneal cavity was entered. There were extensive adhesions to the peritoneum in the midline so these were taken down sharply using Metzenbaum scissors. Once these adhesions were taken down, it was quite apparent that there were extensive adhesions between loops of bowel. These were using Metzenbaum scissors. Once this was done, I was able to then dissect down to the colon leading to the stoma. There was a large left lower quadrant parastomal fascial defect with herniation of multiple loops of bowel. Some of these valves were acutely kinked and angulated from adhesions. These adhesions were . There was marked laxity of the abdominal wall in this area. A #10 MARIA INES drain was placed in the large fascial defect and brought out through a separate incision laterally. The abdominal wall fascial defect was then closed with interrupted #1 Prolene. Once this was done, a piece of Surgimesh was fashioned so that it extended circumferentially around the stoma. The mesh was attached to the abdominal wall, initially with a SecureStrap stapler to have it adequately positioned. It was then secured with running 0 Prolene circumferentially to assure full attachment around the stoma. Once this was secured, The colon was attached to the mesh, partial thickness of the wall of the colon was sutured to the mesh to prevent prolapse and further herniation. After this was done, the area was irrigated. Attention was then turned to the midline incisional hernia. The patient had excellent fascia so no mesh was used. The anterior midline incision was closed primarily using interrupted #1 Prolene. There was a snug closure without tension. The closure did not put any added stress on the peristomal fascia. I was satisfied that this would hold. Irrigation of the abdominal subcutaneous tissue was carried out. Subcutaneous fat was closed with 2-0 Monocryl. Skin was closed with josue. The drain was secured with 2-0 nylon. Tegaderm dressing was placed. The patient tolerated the procedure well. She was awakened, transferred to a bed, and taken to the postanesthetic care unit in satisfactory condition. LCS:jesus Job ID: [id number] Doc ID: [id number] Markus Rodriguez M.D.
== END 2021-10-20 15:15 | disposition home or self-care (01) | DRG 355 ==
LOC: SUR 08:10 → MEDSUR 14:49
PROVIDERS: ADMIT Family Medicine Adult Medicine; ATTEND Family Medicine Adult Medicine

== ENCOUNTER 2024-12-28 06:52 | Inpatient (IN) ==
[2024-12-28 07:51] LABS: Basophils # (Auto) 0.05 K/mcL (0.00-0.30); Basophils % (Auto) 0.6 % (0.0-2.0); Eosinophils # (Auto) 0.14 K/mcL (0.00-0.70); Eosinophils % (Auto) 1.7 % (0.0-7.0); Hematocrit 33.7 % (34.1-44.9); Hemoglobin 10.8 g/dL (11.2-15.7); Lymphocytes # (Auto) 1.98 K/mcL (1.50-4.80); Lymphocytes % (Auto) 24.1 % (15.5-49.0); Mean Corpuscular HGB Conc 32.0 g/dL (31.0-36.0); Monocytes # (Auto) 0.53 K/mcL (0.10-0.90); Monocytes % (Auto) 6.4 % (1.0-12.0); Neutrophils % (Auto) 66.3 % (38.0-78.0); Platelet Count 290 K/mcL (140-440); RBC 3.60 M/mcL (3.59-5.38); WBC 8.2 K/mcL (4.5-11.0)
[2024-12-28] MEDS: HYDROmorphone 0.5 MG/0.5 ML SYRINGE IV ONE (07:53)
[2024-12-28 07:55] LABS: INR 1.0 (0.9-1.1); Prothrombin Time 13.7 sec (11.9-14.5)
[2024-12-28 08:01] LABS: Partial Thromboplastin Time 28.2 sec (20.0-37.0)
[2024-12-28 08:02] LABS: ALT/SGPT 27 U/L (<40); AST/SGOT 27 U/L (<32); Albumin 3.6 gm/dL (3.2-5.2); Albumin/Globulin Ratio 0.9 (1.0-2.3); Alkaline Phosphatase 68 U/L (39-117); Anion Gap 8.0 (8.0-16.0); Bilirubin,Total 0.3 mg/dL (0.1-1.0); Blood Urea Nitrogen 23 mg/dL (8-23); Calcium 8.7 mg/dL (8.6-10.4); Carbon Dioxide 26 mmol/L (22-30); Chloride 103 mmol/L (96-108); Globulin 3.9 gm/dL (2.2-3.7); Glucose 100 mg/dL (70-105); Potassium 3.5 mmol/L (3.3-5.1); Sodium 137 mmol/L (133-145)
[2024-12-28 08:35] LABS: Bacteria,Urine 0 /hpf (0); Bilirubin,Urine Negative (Negative); Color,Urine Yellow; Glucose,Urine (UA) Negative (Negative); Ketones,Urine Negative (Negative); Leukocyte Esterase,Urine Moderate /uL (Negative); PH,Urine 7.0 (5.0-9.0); Protein,Urine Negative (Negative); Specific Gravity,Urine 1.020 (1.000-1.035); Urobilinogen,Urine Normal
[2024-12-28] MEDS: cefTRIAXone 1 GM VIAL IV ONE (11:06)
[2024-12-28] MEDS: fentaNYL 100 MCG/2 ML VIAL IV ONE (11:51)
[2024-12-28] MEDS ORDERED: PROPOFOL 200 MG/20 ML VIAL IV ONE (11:55)
[2024-12-28] MEDS ORDERED: MAGNESIUM SULFATE 2 GM/50 ML BAG IV ONE (11:55)
[2024-12-28] MEDS ORDERED: GLYCOPYRROLATE 0.2 MG/ML VIAL IV ONE (11:55)
[2024-12-28] MEDS ORDERED: FAMOTIDINE/PF 20 MG/2 ML VIAL IV ONE (11:55)
[2024-12-28] MEDS ORDERED: fentaNYL 100 MCG/2 ML VIAL ONE (11:55)
[2024-12-28] MEDS ORDERED: SUCCINYLCHOLINE 200 MG/10 ML VIAL IV ONE (11:55)
[2024-12-28] MEDS ORDERED: TRANEXAMIC ACID 1,000 MG/10 ML VIAL ONE (11:55)
[2024-12-28] MEDS ORDERED: DEXAMETHASONE 10 MG/ML VIAL ONE (11:55)
[2024-12-28] MEDS ORDERED: ONDANSETRON 4 MG/2 ML VIAL ONE (11:55)
[2024-12-28] MEDS ORDERED: LIDOCAINE 2% PF 5 ML VIAL ONE (11:55)
[2024-12-28 12:03] LABS: Barbiturate Screen,Urine None detected; Benzodiazepines Screen,Urine None detected; Fentanyl, Urine Screen None Detected; Opiate Screen,Urine None detected; Oxycodone, Urine Screen None detected; Phencyclidine Screen,Urine None detected
[2024-12-28] MEDS ORDERED: PHENYLephrine 1 MG/10 ML SYRINGE (ANEST) ONE (12:44)
[2024-12-28] MEDS ORDERED: ePHEDrine 50 MG/5 ML SYRINGE (ANEST) IV ONE (12:44)
[2024-12-28] MEDS: ceFAZolin 2 GM in DEXTROSE 5% IN WATER 50 ML IV SCH (13:00)
[2024-12-28] MEDS ORDERED: ROCURONIUM 10 MG/ML ML IV ONE (13:04)
[2024-12-28] MEDS ORDERED: SUGAMMADEX SODIUM 200 MG/2 ML VIAL IV ONE (13:31)
[2024-12-28] MEDS ORDERED: fentaNYL 100 MCG/2 ML VIAL IV PRN (13:54)
[2024-12-28] MEDS ORDERED: ONDANSETRON 4 MG/2 ML VIAL IV PRN ×2 (13:54→15:27)
[2024-12-28] MEDS ORDERED: BENZOCAINE/MENTHOL 1 LOZENGE PO PRN (13:54)
[2024-12-28] MEDS ORDERED: LACTATED RINGERS 250 ML IV PRN (13:54)
[2024-12-28] MEDS ORDERED: NALOXONE HCL 0.4 MG/ML VIAL IV PRN (13:54)
[2024-12-28] MEDS ORDERED: IPRATROPIUM/ALBUTEROL 3 ML AMPUL.NEB NEB PRN ×2 (13:54→15:27)
[2024-12-28] MEDS ORDERED: HYDROmorphone 0.5 MG/0.5 ML SYRINGE IV PRN (13:54)
[2024-12-28] MEDS ORDERED: BISACODYL 10 MG SUPP.RECT PR PRN (14:02)
[2024-12-28] MEDS ORDERED: POLYETHYLENE GLYCOL 3350 17 GM PACKET PO PRN ×2 (14:02→15:27)
[2024-12-28] MEDS ORDERED: FLEETS ADULT 1 DOSE ENEMA PR PRN (14:02)
[2024-12-28] MEDS ORDERED: MAGNESIUM HYDROXIDE 30 ML ORAL.SUSP PO PRN (14:02)
[2024-12-28] MEDS ORDERED: ceFAZolin 2 GM in DEXTROSE 5% IN WATER 50 ML IV SCH (14:15)
[2024-12-28] MEDS: ACETAMINOPHEN 1,000 MG/100 ML BAG IV ONE (14:19)
[2024-12-28] MEDS: TRANEXAMIC ACID 1,000 MG/10 ML VIAL IV ONE (14:34)
[2024-12-28] MEDS: METHOCARBAMOL 1,000 MG/10 ML VIAL IV PRN (14:54)
[2024-12-28] MEDS ORDERED: METOCLOPRAMIDE 10 MG/2 ML VIAL IV PRN (15:27)
[2024-12-28] MEDS ORDERED: ACETAMINOPHEN 325 MG TABLET PO PRN (15:27)
[2024-12-28] MEDS ORDERED: MAGNESIUM SULFATE 2 GM/50 ML BAG IV PRN (15:27)
[2024-12-28] MEDS ORDERED: POTASSIUM CHLORIDE 40 MEQ in DEXTROSE 5% IN WATER 500 ML IV PRN (15:27)
[2024-12-28] MEDS ORDERED: POTASSIUM CHLORIDE 20 MEQ TABLET PO PRN ×2 (15:27)
[2024-12-28] MEDS ORDERED: CARBIDOPA/LEVODOPA 25/100 TABLET PO PRN (15:27)
[2024-12-28] MEDS ORDERED: SENNOSIDES 1 TABLET PO PRN (15:27)
[2024-12-28] MEDS: 0.9 % SODIUM CHLORIDE 1,000 ML IV SCH (15:33)
[2024-12-28] MEDS: LACTATED RINGERS 1,000 ML IV SCH (15:36)
[2024-12-28] MEDS: 0.9 % SODIUM CHLORIDE 10 ML SYRINGE IV SCH (15:58)
[2024-12-28] MEDS: GABAPENTIN 100 MG CAPSULE PO SCH (20:55)
[2024-12-28] MEDS: SENNOSIDES 1 TABLET PO SCH (20:55)
[2024-12-28] MEDS: ASPIRIN 325 MG ENTERIC COATED TABLET PO SCH (20:55)
[2024-12-28] MEDS: HYDROCODONE/APAP 7.5/325MG TABLET PO PRN (20:55)
[2024-12-28] MEDS: DOCUSATE SODIUM 100 MG CAPSULE PO SCH ×2 (20:56→20:58)
[2024-12-29] MEDS: METHOCARBAMOL 500 MG TABLET PO PRN (00:03)
[2024-12-29 06:50] LABS: Basophils # (Auto) 0.01 K/mcL (0.00-0.30); Basophils % (Auto) 0.1 % (0.0-2.0); Eosinophils # (Auto) 0 K/mcL (0.00-0.70); Eosinophils % (Auto) 0 % (0.0-7.0); Hematocrit 27.7 % (34.1-44.9); Hemoglobin 9.0 g/dL (11.2-15.7); Lymphocytes # (Auto) 0.63 K/mcL (1.50-4.80); Lymphocytes % (Auto) 5.1 % (15.5-49.0); Mean Corpuscular HGB Conc 32.5 g/dL (31.0-36.0); Monocytes # (Auto) 0.54 K/mcL (0.10-0.90); Monocytes % (Auto) 4.4 % (1.0-12.0); Neutrophils % (Auto) 90.2 % (38.0-78.0); Platelet Count 219 K/mcL (140-440); RBC 2.94 M/mcL (3.59-5.38); WBC 12.4 K/mcL (4.5-11.0)
[2024-12-29 06:57] LABS: ALT/SGPT 25 U/L (<40); AST/SGOT 31 U/L (<32); Albumin 2.9 gm/dL (3.2-5.2); Albumin/Globulin Ratio 0.9 (1.0-2.3); Alkaline Phosphatase 53 U/L (39-117); Anion Gap 10.0 (8.0-16.0); Bilirubin,Direct < 0.2 mg/dL (0-0.3); Bilirubin,Total 0.3 mg/dL (0.1-1.0); Blood Urea Nitrogen 17 mg/dL (8-23); Calcium 7.4 mg/dL (8.6-10.4); Carbon Dioxide 23 mmol/L (22-30); Chloride 102 mmol/L (96-108); Globulin 3.4 gm/dL (2.2-3.7); Glucose 100 mg/dL (70-105); Phosphorous 4.0 mg/dL (2.5-4.5); Potassium 3.7 mmol/L (3.3-5.1); Sodium 135 mmol/L (133-145); Triglycerides 96 mg/dL (<150); Uric Acid 4.4 mg/dL (2.5-8.0)
[2024-12-29] MEDS: LIDOCAINE 4% TOP PATCH TOPICAL PRN (09:12)
[2024-12-29] MEDS: cefTRIAXone 1 GM VIAL IV SCH (09:12)
[2024-12-29] MEDS: PANTOPRAZOLE 40 MG TABLET PO SCH (09:14)
[2024-12-29] MEDS ORDERED: BENZOCAINE/MENTHOL 1 LOZENGE PO PRN (09:25)
[2024-12-29] MEDS: BENZOCAINE/MENTHOL 1 LOZENGE PO PRN (12:19)
[2024-12-30 06:40] LABS: Basophils # (Auto) 0.03 K/mcL (0.00-0.30); Basophils % (Auto) 0.3 % (0.0-2.0); Eosinophils # (Auto) 0.06 K/mcL (0.00-0.70); Eosinophils % (Auto) 0.6 % (0.0-7.0); Hematocrit 25.0 % (34.1-44.9); Hemoglobin 7.9 g/dL (11.2-15.7); Lymphocytes # (Auto) 1.03 K/mcL (1.50-4.80); Lymphocytes % (Auto) 10.3 % (15.5-49.0); Mean Corpuscular HGB Conc 31.6 g/dL (31.0-36.0); Monocytes # (Auto) 0.64 K/mcL (0.10-0.90); Monocytes % (Auto) 6.4 % (1.0-12.0); Neutrophils % (Auto) 82.2 % (38.0-78.0); Platelet Count 190 K/mcL (140-440); RBC 2.57 M/mcL (3.59-5.38); WBC 10.0 K/mcL (4.5-11.0)
[2024-12-31 06:25] LABS: Hematocrit 28.1 % (34.1-44.9); Hemoglobin 9.1 g/dL (11.2-15.7)
[2024-12-31 11:15] VITALS: TEMP 98.5; O2SAT 97
== END 2024-12-31 15:26 | DRG 481 ==
LOC: ED 06:52 → SSSU 12:40 → MEDSUR 15:19
PROVIDERS: ADMIT Internal Medicine; ATTEND Internal Medicine
PROC: ORIFHIP (2024-12-28 12:58)